=== PATIENT | female | born 1970 | race Caucasian/White ===

== ENCOUNTER 2018-11-01 06:23 | Day surgery (SDC) | payer SELFPAY ==
[2018-10-26 18:22] VITALS: BMI 27.2
[2018-11-01] MEDS ORDERED: LIDOCAINE HCL 1% PRESERVATIVE FREE - 30ML VIAL ONE ×2 (07:17→09:18)
[2018-11-01] MEDS ORDERED: EPINEPHrine/PF 1 MG/1 ML (1:1,000) AMPULE ONE ×3 (07:17→09:54)
[2018-11-01] MEDS ORDERED: BACITRACIN 15 GM TUBE TOPICAL OINTMENT ONE ×2 (07:18→13:00)
[2018-11-01] MEDS ORDERED: HEPARIN NA (PORCINE) 5,000 UNITS/ML 1ML VIAL ONE (07:21)
[2018-11-01] MEDS ORDERED: MIDAZOLAM HCL 2 MG/2 ML SINGLE DOSE VIAL ONE (07:41)
[2018-11-01] MEDS ORDERED: ROCURONIUM BROMIDE 50 MG/5 ML VIAL ONE ×3 (07:42→10:59)
[2018-11-01] MEDS ORDERED: PROPOFOL 20 ML ONE ×6 (07:42→13:52)
[2018-11-01] MEDS ORDERED: fentaNYL CITRATE 250 MCG/5 ML VIAL ONE (07:42)
[2018-11-01] MEDS ORDERED: SUCCINYLCHOLINE CHLORIDE 200 MG/10 ML VIAL ONE (07:44)
[2018-11-01] MEDS ORDERED: LIDOCAINE HCL/PF 2% SDV 5ML VIAL ONE (07:44)
[2018-11-01] MEDS ORDERED: GENTAMICIN SO4 80 MG/2 ML VIAL ONE ×2 (07:48→09:18)
[2018-11-01] MEDS ORDERED: ceFAZolin SODIUM 1 GM VIAL ONE ×3 (07:48→09:18)
[2018-11-01] MEDS ORDERED: DEXAMETHASONE SOD PHOSPHATE 4 MG/1 ML VIAL ONE (08:47)
[2018-11-01] MEDS ORDERED: ONDANSETRON 4 MG/2 ML VIAL ONE ×2 (08:47→15:28)
[2018-11-01] MEDS ORDERED: PHENYLEPHRINE HCL 10 MG/1 ML SINGLE DOSE VIAL ONE (09:20)
[2018-11-01] MEDS ORDERED: HYDROmorphone HCL/PF 1 MG/ML AMP ONE ×2 (09:57→11:22)
[2018-11-01] MEDS ORDERED: GLYCOPYRROLATE 0.2 MG/1 ML VIAL ONE ×2 (13:25→15:29)
[2018-11-01] MEDS ORDERED: NEOSTIGMINE METHYLSULFATE 0.5 MG/ML - 10 ML MDV ONE (13:50)
[2018-11-01] MEDS ORDERED: DESFLURANE GAS 240 ML BOTTLE IH ONE (15:04)
[2018-11-01] MEDS ORDERED: oxyCODONE HCL 5 MG TABLET PO PRN ×3 (16:32→16:36)
[2018-11-01] MEDS ORDERED: ONDANSETRON 4 MG/2 ML VIAL IVPUSH PRN (16:32)
[2018-11-01] MEDS ORDERED: PROMETHAZINE HCL 25 MG/1 ML VIAL IVPUSH PRN (16:32)
[2018-11-01] MEDS ORDERED: ONDANSETRON 4 MG/2 ML VIAL IVPB PRN (16:36)
[2018-11-01] MEDS ORDERED: morphine SULFATE 4 MG/ML VIAL IVPUSH PRN (16:36)
[2018-11-01] MEDS ORDERED: LACTATED RINGERS SOLUTION 1,000 ML IV SCH (16:45)
--- NOTE | 2018-11-01 16:45 | OP ---
Operative Note - Note: Operative Date: 11/01/18 Pre-Operative Diagnosis: breast ptosis and gluteal deficiciency Operation: bilateral augmentation mastopexy with liposuction to trunk and fat grafting to buttocks Findings: above Implants: bilateral silicone breast implants Post-Operative Diagnosis: Same as Pre-op Surgeon: Jesu Miranda Anesthesia: General Estimated Blood Loss (mls): 200 Operative Report Dictated: Yes
[2018-11-01] MEDS: CEFAZOLIN 1 GM/D5W 1 GM/50 ML BAG IVPB SCH (21:58)
--- NOTE | 2018-11-02 01:10 | OP ---
DATE OF OPERATION: 11/01/2018 TITLE OF PROCEDURE: Bilateral breast augmentation mastopexy and liposuction to abdomen, flanks, and back with free fat grafting to bilateral buttocks and hips. ATTENDING SURGEON: Toby Schuster M.D. [employer] CONSULTANT: None ANESTHESIA: General endotracheal anesthesia PREOPERATIVE DIAGNOSIS: Cosmetic. POSTOPERATIVE DIAGNOSIS: Cosmetic. The patient is seen in the holding area. All risks, benefits, and alternatives and limitation to the operation are discussed at length. She understands and agrees to proceed. She is marked. Nipples are sited at 22 cm from the sternal notch bilaterally. It is noted that the left inframammary fold is 0.5 cm higher than the right inframammary fold, and a decision to lower this intraoperatively is made. A circumvertical mastopexy pattern is planned. The markings for liposuction to the abdomen, flanks, and back are made in the areas of deficiency, and the patient's buttocks and hips are also marked. The patient is given 5000 units of subcutaneous heparin preoperatively. RAÚL hose and sequential compression stockings are placed bilaterally. The patient is brought to the operating room, placed in a supine position. Position is carefully checked by surgical and anesthesia teams. She is given 2 g of Ancef preoperatively after induction of general anesthesia. Whyte catheter is placed. She is prepped and draped in standard surgical fashion. A timeout is called. Patient, procedure, side, sites are verified. Attention is first directed towards the patient's left breast. A 45-mm cookie cutter is used for the nipple areolar complex. The plan is for a superior pedicle circumvertical pattern mastopexy. The vertical limb of the incision is made after a timeout is called. Patient, procedure, side, sites are verified. Dissection is carried down to the level of the pectoralis major muscle. The pectoralis major muscle fibers are then elevated and a subpectoral plane is developed. The medial inferior attachments of the pectoralis major muscle are divided. Hemostasis is meticulously achieved with direct vision. The intention on the left side is to lower the inframammary fold 0.5 cm. A pocket is created, is integrated with triple antibiotic solution. A procedure is then performed on the contralateral right side. The pockets are found to be symmetric. At this point using a Salazar funnel a Natrelle style SRM-310 implant is brought onto the field. It is using a no-touch technique, it is rinsed in the triple antibiotic solution. Standard triple antibiotic solution is used, and then used in the Salazar funnel. It is placed into the pocket and oriented properly. The skin is tailer tacked. An identical insertion of a same style and size implant is placed on the left side. The patient is then brought to a seated, upright position where the markings for the mastopexy are then reassessed and modified as necessary. The mastopexy is then performed on the bilateral sides. The superior pedicle is developed. The semicircular pattern is deepithelialized with the exception of the nipple areolar complex with the nipple mobilized into the mandaen pattern. The skin is mobilized around the nipple, and the excess skin and subcutaneous tissue are removed in a vertical extension of the incision at the 6 o'clock position. With the skin tailer tacked on both sides, patient brought again into a seated upright position. Symmetry, size, shape, and position of the implant, breast tissue, and nipple are deemed to be excellent. Closure is then performed of the medial and lateral pillars of the mastopexy pattern, first in a series of 3-0 Vicryl suture followed by a skin closure along the vertical limb with a series of interrupted deep dermal buried 3-0 Monocryl suture . The nipple areolar is then inset, first with a series of interrupted deep dermal buried 3-0 Monocryl suture, a tension bearing pursestring mid dermal 4-0 Prolene suture is used on both sides. The tension on the suture is used to control the size of the areola. Once this is completed, the closure of the areola is then performed with a running 5-0 fast-absorbing plain gut suture on superficial layer. Tissues are pink and viable. This closure is performed identically bilaterally. Attention is then directed toward the liposuction on the trunk . Wetting solution had been infiltrated prior to the final closure, ti was allowed to sit for 30 minutes. The wetting solution is a liter of lactated Ringer's with 1 ampule of epinephrine and 20 mL of 1% lidocaine plain. That was in the first bag. The second bag was a liter of lactated Ringer's with 1 ampule of epinephrine and no lidocaine. After awaiting for the anesthetic effect, several stab wound incisions were for access for liposuction. Liposuction was performed using the safe liposuction technique standardly described with pre and post tunneling with a nonsuction 4-mm basket tipped cannula. Suction is performed with a combination of 4 and 5-mm cannulas using a [employer] power assisted system. The Revolve fat harvesting system is used for fat harvesting and transfer and is processed in preparation for transfer by being washed and prepared into 10 mL syringes. Total lipoaspirate on the anterior side is 1750 mL. The liposuction holes were then closed with a series of interrupted 5-0 nylon suture. Sterile Steri-Strips and 4x4 gauze and used to dress the breast. The drapes are removed. Patient is then transferred to a prone position. This is done by carefully transferring the patient in a supine position to her stretcher. All appropriate positioning aids are used, chest rolls, prone view, pillow beneath the shins, arm cradles, egg crate under the seat. The SCDs and RAÚL hose are reconnected. The position is carefully checked by the anesthesia team. The patient is then reprepped and draped, and a new timeout is called. Patient, procedure, side, sites are verified. Wetting solution is reinfiltrated, a total of 2 L of lactated Ringer's and in each liter is 20 mL of 1% lidocaine and 1 ampule of 1:100,000 epinephrine. This is done in a standard wetting solution infiltration technique, and a full 20 minutes is awaited for liposuction. At this point, liposuction performed in the safe liposuction technique, and fat is harvested again using the Revolve fat harvesting system. Once the fat is fully harvested, the fat is liposuctioned from the lumbar subcutaneous space and bilateral flanks. The total fat yielded after being spun, washed, and prepared as a graft is 575 mL, which is prepared in syringes using a microdroplet technique and a Combined Effort injection cannulas. The injections are performed on each buttock and each hip. The fat injections are as follows. There is 100 mL of fat injected into each lateral buttock/hip; on the right buttock superior and centrally there is 190 mL injected, and in the left superior central there is 185 mL injected. The injections are performed in a subcutaneous plane. The end point is smooth, even contour with a good correction of the deficiency. The injection holes are closed with a series of interrupted 5-0 nylon suture. A compression garment is fitted onto the patient that provides compression to the lumbar area and back and abdomen but leaves no compression on the buttocks. The garment has a built-in bra for the breasts. Patient is transferred to a supine position. The breasts are checked, which are uninjured through this second procedure, and the patient is awoken from anesthesia and transferred to recovery without complications. TOBY SCHUSTER M.D. [id number]
[2018-11-02] MEDS: CEFAZOLIN 1 GM/D5W 1 GM/50 ML BAG IVPB SCH ×2 (03:16→08:56)
[2018-11-02 04:17] VITALS: BP 142/92; PULSE 89; TEMP 98.4
--- NOTE | 2018-11-02 06:56 | PN ---
Progress Note (short form) - Note Progress Note: All tissues viable, no collections VSS AF Ambulating Receiving sq heparin Dressings CDI OK for discharge with instructions
[2018-11-02] MEDS ORDERED: HEPARIN NA (PORCINE) 5,000 UNITS/ML 1ML VIAL SQ SCH (08:00)
== END 2018-11-02 12:27 | disposition home or self-care (01) ==
LOC: FASU 06:23 → FASUSAT 06:23 → FM/S 18:00 → FASUSAT 11-02 12:27
PROVIDERS: ATTEND Plastic Surgery
PROC: 0J083ZZ Alteration of Abdomen Subcutaneous Tissue and Fascia, Percutaneous Approach (ICD-10-PCS; 2018-11-01)
PROC: 0J073ZZ Alteration of Back Subcutaneous Tissue and Fascia, Percutaneous Approach (ICD-10-PCS; 2018-11-01)
PROC: 0HRV0JZ Replacement of Bilateral Breast with Synthetic Substitute, Open Approach (ICD-10-PCS; principal; 2018-11-01 09:28)
PROC: 0H0V0JZ Alteration of Bilateral Breast with Synthetic Substitute, Open Approach (ICD-10-PCS; 2018-11-01 09:28)
DX: Z41.1 Encounter for cosmetic surgery (principal)
CPT/HCPCS: 84703; 94760; J1644

== ENCOUNTER 2018-11-06 12:31 | Emergency (ER) | payer BC ==
[2018-11-06 12:49] VITALS: BP 154/99; PULSE 94; TEMP 98.3; BMI 27.1
--- NOTE | 2018-11-06 13:15 | PDOC ---
History of Present Illness - General Chief Complaint: Edema Stated Complaint: BOTH LEG SWELLING Time Seen by Provider: 11/06/18 12:42 History Source: Patient Exam Limitations: No Limitations - History of Present Illness Initial Comments: 11/06/18 13:14 48y F no pmhx sp recent abdominoplasty, bbl, breast augmentation (on thu) presents with complaint of increased b/l LE edema today. Pt notse slight edema yesterday but today is much worse. denies any leg pain, calf english, sob, cp, palpitations, sanchez. pt on prophylactic 2.5mg eliquis BID since surgery - no prior hx of blood clots/pe/dvt. nots her wound sites are doing good without any pain, swelling or bleeding deneis being on ocp Surgeon: Dr. Miranda Past History - Past Medical History Allergies/Adverse Reactions: Allergies Allergy/AdvReac Type Severity Reaction Status Date / Time No Known Allergies Allergy Verified 11/06/18 12:33 Home Medications: Ambulatory Orders Apixaban [Eliquis] 2.5 mg PO DAILY 11/06/18 Cephalexin [Keflex] 500 mg PO BID 11/06/18 Oxycodone HCl 5 mg PO PRN PRN 11/06/18 Anemia: No Asthma: No Cancer: No Cardiac Disorders: No CVA: No COPD: No CHF: No Dementia: No Diabetes: No GI Disorders: No Disorders: No HTN: No ("borderline") Hypercholesterolemia: No Liver Disease: No Seizures: No Thyroid Disease: Yes (hx of hypertyhroid after 9 years ago) - Suicide/Smoking/Psychosocial Hx Smoking History: Never smoked Have you smoked in the past 12 months: No Information on smoking cessation initiated: No Hx Alcohol Use: No Drug/Substance Use Hx: No Review of Systems - Review of Systems Able to Perform ROS?: Yes Comments:: 11/06/18 13:29 Respiratory: no reported cough, sob, hemoptysis Cardiac: no reported chest pain, palpitations, light headedness, leg swelling Abd/GI: no reported abd pain, nausea, vomiting, Musculskelatal - no reported back pain, joint swelling skin - no reported bruising, erythema, rash neurological: no reported headache, numbness, focal weakness, tingling, ataxia, hematologic: no reported easy bruising, easy bleeding *Physical Exam - Vital Signs Last Vital Signs Temp Pulse Resp BP Pulse Ox 98.3 F 94 H 20 154/99 100 11/06/18 12:33 11/06/18 12:33 11/06/18 12:33 11/06/18 12:33 11/06/18 12:33 - Physical Exam Comments: 11/06/18 13:31 GENERAL: The patient is awake, alert, and fully oriented, Nontoxic - in no acute distress. HEAD: Normocephalic, atraumatic. LUNGS: Breath sounds equal, clear to auscultation bilaterally. No wheezes, no rhonchi, no rales. HEART: Regular rate and rhythm, normal S1 and S2 without murmur, rub or gallop. EXTREMITIES: b/l LE edema, neg calf tenderness, neg homans ED Treatment Course - RADIOLOGY Radiology Studies Ordered: Category Date Time Status DUPLEX VASCUL US-2LEGS [US] Stat Ultrasound 11/06/18 13:13 Ordered Medical Decision Making - Medical Decision Making 11/06/18 13:31 suspect edema secondary to inhibitted blood flow but in light of recent surgical procedure will obtain US to r/o DVT if neg anticipate fu with dr. Miranda *DC/Admit/Observation/Transfer Diagnosis at time of Disposition: Leg edema - Discharge Dispostion Disposition: HOME Condition at time of disposition: Improved Decision to Admit order: No - Referrals Referrals: Jesu Miranda MD [Staff Physician] - - Patient Instructions Printed Discharge Instructions: DI for Peripheral Edema -- Bilateral Additional Instructions: Return to the emergency department immediately with ANY new, persistent or worsening symptoms including any shortness of breath, chest pain, leg pain or other concerns. Your ultrasound was negative for blood clots. Please continue your activity, continue taking the eliquis as prescribed. You MUST call and follow up with doctor Miranda on Thursday as scheduled for further evaluation of your symptoms. Results were discussed with you. Please make sure your doctor reviews the results of your emergency evaluation. - Post Discharge Activity
== END 2018-11-06 14:16 | disposition home or self-care (01) ==
LOC: FER 12:31
DX: M79.89 Other specified soft tissue disorders (principal); E07.9 Disorder of thyroid, unspecified
CPT/HCPCS: 93970-TC; 99281-25